=== PATIENT | male | born 1985 | race Two or more races ===

== ENCOUNTER 2018-02-22 00:43 | Emergency (ER) | payer BC ==
[2018-02-22 00:50] VITALS: BMI 28.5
[2018-02-22 00:52] VITALS: BP 110/97; PULSE 76; RESP 16; TEMP 97.5; O2SAT 94
[2018-02-22] MEDS ORDERED: Sodium Chloride 0.9% 1,000 ML IV STA (02:01)
--- NOTE | 2018-02-22 02:17 | ED PDOC ---
HPI: Psych/Substance Abuse Time Seen by Provider: 02/22/18 01:11 Chief Complaint (Nursing): Alcohol Ingestion Chief Complaint (Provider): Alcohol Intoxication ED Caveat: Intoxicated History Per: Patient, EMS, Other (Friend) History/Exam Limitations: no limitations Onset/Duration Of Symptoms: Mins Current Symptoms Are (Timing): Still Present Additional Complaint(s): 32 year old male presents to the ED via EMS for alcohol intoxication. Patient was drinking with his date when he drank too much vodka at home. Patient's date called EMS because he was vomiting and had passed out after being very drunk. He was unable to eat or drink anything. Patient's date does not know anything about patient's medical history and patient is not a good historian. History is limited due to intoxication. There were no reports of trauma. PMD: none provided Past Medical History Reviewed: Historical Data, Nursing Documentation, Vital Signs, Unable To Obtain Vital Signs: Last Vital Signs Temp 97.5 F L 02/22/18 00:50 Pulse 76 02/22/18 00:50 Resp 16 02/22/18 00:50 BP 110/97 H 02/22/18 00:50 Pulse Ox 94 L 02/22/18 00:50 - Medical History PMH: No Chronic Diseases - Surgical History Surgical History: No Surg Hx - Family History Family History: States: No Known Family Hx - Allergies Allergies/Adverse Reactions: Allergies Allergy/AdvReac Type Severity Reaction Status Date / Time No Known Allergies Allergy Verified 02/22/18 00:50 Review of Systems Review Of Systems: ROS cannot be obtained secondary to pt's inabilty to answer questions. Physical Exam - Reviewed Nursing Documentation Reviewed: Yes Vital Signs Reviewed: Yes - Physical Exam Appears: Positive for: Non-toxic, No Acute Distress Head Exam: Positive for: ATRAUMATIC, NORMAL INSPECTION, NORMOCEPHALIC Skin: Positive for: Normal Color, Warm, Dry Eye Exam: Positive for: Normal appearance, PERRL ENT: Positive for: Normal ENT Inspection Neck: Positive for: Normal, Painless ROM Cardiovascular/Chest: Positive for: Regular Rate, Rhythm. Negative for: Murmur Respiratory: Positive for: Normal Breath Sounds. Negative for: Wheezing, Respiratory Distress Gastrointestinal/Abdominal: Positive for: Normal Exam, Soft. Negative for: Tenderness, Distended Neurologic/Psych: Positive for: Other (Obtunded and arousable to pain, touch, and voice;). Negative for: Alert, Oriented - Laboratory Results Result Diagrams: 02/22/18 02:30 02/22/18 02:30 - ECG O2 Sat by Pulse Oximetry: 94 (RA) Pulse Ox Interpretation: Normal Medical Decision Making Medical Decision Making: Initial Impression: Alcohol intoxication Initial Plan: --Alcohol serum --BMP --Drug screen --CBC --Sodium chloride 1000mL IV --Zofran 4mg IV Observe patient for clinical sobriety and improvement. Scribe Attestation: Documented by Lele Mcnamara acting as a scribe for Natalia Girard MD. Provider Scribe Attestation: All medical record entries made by the Scribe were at my direction and personally dictated by me. I have reviewed the chart and agree that the record accurately reflects my personal performance of the history, physical exam, medical decision making, and the department course for this patient. I have also personally directed, reviewed, and agree with the discharge instructions and disposition. Disposition - Clinical Impression Clinical Impression: Alcohol abuse - Patient ED Disposition Is Patient to be Admitted: No Doctor Will See Patient In The: Office Counseled Patient/Family Regarding: Studies Performed, Diagnosis - Disposition Disposition: Routine/Home Disposition Time: 06:30 Condition: GOOD Instructions: Alcohol Abuse and Alcoholism (DC)
[2018-02-22 02:48] LABS: BASO % 0.4 % (0.0-2.0); EOS % 0.2 % (0.0-4.0); HEMOGLOBIN 13.5 g/dL (12.0-18.0); LYMPH # 1.1 K/uL (1.0-4.3); LYMPH % 12.8 % (20.0-40.0); MEAN CELL VOLUME 80.1 fl (80.0-94.0); MEAN CORPUSCULAR HEMOGLOBIN 26.2 pg (27.0-31.0); MEAN CORPUSCULAR HGB CONC 32.8 g/dL (33.0-37.0); MEAN PLATELET VOLUME 8.1 fl (7.2-11.7); MONO # 0.3 K/uL (0.0-0.8); MONO % 3.3 % (0.0-10.0); NEUT # 7.1 K/uL (1.8-7.0); NEUT % 83.3 % (50.0-75.0); RBC 5.14 Mil/uL (4.40-5.90); RED CELL DISTRIBUTION WIDTH 13.3 % (11.5-14.5); WHITE BLOOD COUNT 8.5 K/uL (4.8-10.8)
[2018-02-22 02:55] LABS: BLOOD UREA NITROGEN 14 mg/dl (9-20); CALCIUM 9.1 mg/dL (8.4-10.2); GFR NON-AFRICAN AMERICAN > 60
== END 2018-02-22 06:36 | disposition home or self-care (01) ==
LOC: H.ER 00:43
DX: F10.129 Alcohol abuse with intoxication, unspecified (principal)
CPT/HCPCS: 80048; 82948; 85025; 99284; G0480